=== PATIENT | female | born 1970 | race Caucasian/White ===

== ENCOUNTER 2016-09-21 18:33 | Emergency (ER) | payer OTHER ==
--- NOTE | ~2016-09-21 | CR229 ---
[facility] A Service of [facility] RADIOLOGY TEXT RESULTS PATIENT: DAVID RENO LOCATION: SED : 74 UNIT #: [id number] AGE: [address]: Jerome Tuttle MD SEX: F ORDER DR: [id number] [place] [id number] E MR#: [id number] #: [id number] NAME: DAVID RENO : 1970 SEX: F STUDY DATE/TIME: 09/21/2016 18:29 UNIT: SED ROOM: STUDY DESCRIPTION: CR Shoulder Min 2 View Lt Attending Physician: Jerome Tuttle M.D. Ordering Physician: Jerome Tuttle M.D. Primary Care Physician: Primary Care Physician No MEDICAL IMAGING REPORT This report is preliminary unless electronic signature is present. EXAM Left shoulder HISTORY Left shoulder pain. Diminished range of motion since yesterday. No injury. FINDINGS Three views of the left shoulder are reviewed. There is no previous. There is some calcification seen at the expected location of the insertion of the rotator cuff tendons on the greater tuberosity. This is highly concerning for calcific tendonitis and this is best pursued with an MRI if the patient is a candidate. There is no acute fracture, dislocation or radiopaque foreign body suspected. IMPRESSION Calcification along the course of the rotator cuff tendon is highly concerning for calcific tendinitis. Correlation with an MRI would be most helpful if the patient is a candidate. No acute fracture or dislocation. Dictated by... Lupe Nelson M.D. THIS IS AN ELECTRONICALLY VERIFIED REPORT Lupe Nelson M.D. at 09/22/2016 3:09 PM BONNIE/boogie TD: 09/22/2016 13:40 JOB #: [id number] [facility] A Service of [facility] RADIOLOGY TEXT RESULTS PATIENT: DAVID RENO LOCATION: SED : 74 UNIT #: [id number] AGE: [address]: Jerome Tuttle MD SEX: F ORDER DR: MEDICAL IMAGING REPORT Page 1 of 1
[~2016-09-21 18:33] MED LIST: AMOXIL875 MG PO; FLEXERIL PO; HYZAAR; INSULIN PUMP; IRON134 MG; LIPITOR; LISINOPRIL PO; METFORMIN; NAPROSYN375 MG PO; NORFLEX100 M1 PO; PROVERA; VITAMIN D PO; ZOLOFT PO; [UNRECOGNIZED DRUG - OTHER]
== END 2016-09-21 19:49 | disposition home or self-care (01) ==
LOC: SED 18:33
DX: S46.912A Strain of unspecified muscle, fascia and tendon at shoulder and upper arm level, left arm, initial encounter (principal); M75.32 Calcific tendinitis of left shoulder; I10 Essential (primary) hypertension; E11.9 Type 2 diabetes mellitus without complications; E78.5 Hyperlipidemia, unspecified; Z79.899 Other long term (current) drug therapy; X58.XXXA Exposure to other specified factors, initial encounter
CPT/HCPCS: 73030; 99283